=== PATIENT | female | born 1965 | race American Indian/Alaskan Native ===

== ENCOUNTER 2018-05-14 10:05 | Day surgery (SDC) | payer OTHER ==
[~2018-05-14] VITALS: Ht 175.3 cm; Wt 111.6 kg
[~2018-05-14 10:05] MED LIST: ALBUTEROL SULF8.5 GM INH; CRUTCH1 EACH
[2018-05-14] MEDS ORDERED: SENNA LAX8.6 MG PO (12:16)
[2018-05-14] MEDS ORDERED: HYDROCODON-ACE1 EA11 PO (12:16)
[2018-05-14] MEDS ORDERED: NAPROXEN500 MG PO (12:17)
--- NOTE | 2018-05-14 12:50 | NUR ---
05/14/18 1250 Tressa Ya 1217 PT ARRIVED IN PACU SLEEPY WITH NO C/O'S. 1230 OXYGEN REMOVED. SATS 90-95% ON RA. ENCOURAGED DEEP BREATHING. 1240 CRYO CUFF PLACED ON R KNEE.
--- NOTE | 2018-05-14 14:34 | NUR ---
1305 PT RETURNED FROM PACU, AWAKE AND TALKING WITH STAFF. DENIES PAIN AND NAUSEA. DRESSING C/D/I, CRYO CUFF IN PLACE. CMS INTACT. PT GIVEN WATER, COFFEE AND SOUP PER REQUEST. CALL LIGHT IN REACH. 1330 IN TO CHECK ON PT. DENIES PAIN. PT TALKING WITH DAUGHTER AND GRANDDAUGHTER. DENIES PAIN. NO FURTHER NEEDS AT THIS TIME.
--- NOTE | 2018-05-14 14:36 | NUR ---
1400 IN TO CHECK ON PT. PT DOING WELL. ASSISTED UP TO BATHROOM, TOLERATED WELL. DENIES PAIN. VITALS STABLE. PT STATES SHE IS READY FOR DISCHARGE. IV DC'D. PT DRESSED WITH ASSISTANCE FROM DAUGHTER JOVAN. DISCHARGE INSTRUCTIONS GIVEN, NO FURTHER QUESTIONS AT THIS TIME. PT WHEELED OUT TO WAITING CAR.
--- NOTE | 2018-05-15 07:51 | OR ---
[facility] [address] [place], [place] [address] Signed DATE OF OPERATION: 05/14/2018 SURGEON: Trent Howard MD PREOPERATIVE DIAGNOSIS: Medial and lateral meniscus tears, right knee. POSTOPERATIVE DIAGNOSIS: Medial and lateral meniscus tears, right knee. PROCEDURE PERFORMED: Right knee arthroscopy with partial medial and lateral meniscectomies. ANESTHESIA: General. LUMBER BUYER: BON Torres. Linda was present in critical positioning, camera holding, and closure. BLOOD LOSS: Minimal. TOURNIQUET TIME: Zero. BRIEF HISTORY: Vivian is a 53-year-old female with pain and locking in her knee. MRI is consistent with the above findings. Risks and benefits of operative treatment discussed with her and she elected to proceed. Once consent was obtained, she was taken to the operating room. After adequate anesthesia, she was placed on operating room table. Left leg was flexed and abducted and externally rotated on a well-padded leg tello. The right was placed in well-padded, proximal thigh tourniquet was placed in leg tello and port sites were pre-injected using 0.25% Marcaine with epinephrine under an alcohol prep. Leg was then prepped and draped in the standard sterile fashion. Standard inferolateral, and superolateral portals were made. The scope was introduced into the knee. ARTHROSCOPIC FINDINGS: Minimal synovitis was noted throughout the knee. The patella showed grade 3 chondromalacia, the trochlea grade 4 chondromalacia. Medial and lateral gutters were Electronically Signed By: TRENT HOWARD MD 05/15/18 0751 PATIENT NAME: VIVIAN GARCIA OPERATIVE REPORT DATE OF : 61 REPORT #: [id number] PHYSICIAN: TRENT HOWARD MD PCP: CHANA LEAL MD REPORT IS CONFIDENTIAL AND NOT TO BE RELEASED WITHOUT AUTHORIZATION [facility] [address] [place], [place] [address] Signed clear. There were some cartilaginous loose bodies. The ACL and PCL were intact. Lateral compartment showed no significant chondromalacia. There was a small radial tear in the posterior lateral corner. Medial compartment showed a small area of grade 3 chondromalacia of the femoral condyle and grade 2 changes on the tibia. Again, there were some cartilaginous loose bodies. The meniscus tear was noted to be a large complex tear extending from mid body posteriorly. DESCRIPTION OF PROCEDURE: Standard inferomedial portal was made after localization using the spinal needle. The straight and curved biters were then used to trim both menisci back to a stable rim and this was removed using the shaver and all debris was evacuated including the cartilaginous loose bodies. Once this was accomplished, the scope was withdrawn. Portals were closed with 3-0 nylon and dressed with Adaptic, ABD, and Rory wrap. She tolerated the procedure well. All sponge, needle, and instrument counts were correct. At the end of the procedure, we did inject the knee with 60 mg of Toradol. Trent Howard MD BA/MODL /[id number] Copies: ~ Electronically Signed By: TRENT HOWARD MD 05/15/18 0751 PATIENT NAME: VIVIAN GARCIA OPERATIVE REPORT DATE OF : 61 REPORT #: [id number] PHYSICIAN: TRENT HOWARD MD PCP: CHANA LEAL MD REPORT IS CONFIDENTIAL AND NOT TO BE RELEASED WITHOUT AUTHORIZATION
== END 2018-05-14 14:15 | disposition home or self-care (01) ==
LOC: DS 10:05 → OPS 10:05 → DS 10:45 → OPS 11:00 → DS 13:00 → OPS 13:00
PROVIDERS: Specialist
PROC: 0SBC4ZZ Excision of Right Knee Joint, Percutaneous Endoscopic Approach (ICD-10-PCS; 2018-05-14)
PROC: 0SCC4ZZ Extirpation of Matter from Right Knee Joint, Percutaneous Endoscopic Approach (ICD-10-PCS; 2018-05-14)
PROC: 0SBC4ZZ Excision of Right Knee Joint, Percutaneous Endoscopic Approach (ICD-10-PCS; principal; 2018-05-14 11:00)
DX: S83.231A Complex tear of medial meniscus, current injury, right knee, initial encounter (principal); S83.281A Other tear of lateral meniscus, current injury, right knee, initial encounter; M65.861 Other synovitis and tenosynovitis, right lower leg; M22.41 Chondromalacia patellae, right knee; J45.909 Unspecified asthma, uncomplicated; F17.210 Nicotine dependence, cigarettes, uncomplicated; Z88.8 Allergy status to other drugs, medicaments and biological substances; Z79.51 Long term (current) use of inhaled steroids; X58.XXXA Exposure to other specified factors, initial encounter
CPT/HCPCS: 01400; J0131; J0690; J1885; J2405; J2704; J2765; J3010

== ENCOUNTER 2020-06-24 10:56 | Emergency (ER) | payer OTHER ==
[~2020-06-24] VITALS: Ht 175.3 cm; Wt 113.4 kg
[~2020-06-24 10:56] MED LIST changes: +ASPIRIN EC325 MG PO; +CELECOXIB200 MG PO; +CLOBETASOL PROP15 GM TOP; +GABAPENTIN600 MG PO; +HEALTHYLAX17 GM PO; +HYDROCODON-ACE1 EA11 PO; +NAPROXEN500 MG PO; +NICORELIEF2 MG MT; +NICOTINE PATCH1 EAC4 TD; +OXYCODONE HCL5 MG PO; +SENNA LAX8.6 MG PO; +TYLENOL EXTRA500 MG PO
[2020-06-24] MEDS ORDERED: LIPITOR10 MG (11:25)
--- NOTE | 2020-06-24 13:06 | EKG ---
[facility] [address] [facility] [place], [place] [address] Signed Normal sinus rhythm Low voltage QRS Borderline ECG When compared with ECG of 08-MAY-2018 11:38, No significant change was found Confirmed by NICOLE VALENCIA MD ([id number]) on 06/24/2020 1:06:39 PM Electronically Signed By: NICOLE VALENCIA MD 06/24/20 1306 PATIENT NAME: GARCIAVIVIAN Electrocardiogram DATE OF : 61 PHYSICIAN: NICOLE VALENCIA MD REPORT #: [id number] REPORT IS CONFIDENTIAL AND NOT TO BE RELEASED WITHOUT AUTHORIZATION
== END 2020-06-24 13:04 | disposition home or self-care (01) ==
LOC: ED 10:56
DX: R07.9 Chest pain, unspecified (principal); F17.200 Nicotine dependence, unspecified, uncomplicated; Z88.8 Allergy status to other drugs, medicaments and biological substances; Z88.1 Allergy status to other antibiotic agents; Z79.899 Other long term (current) drug therapy; Z79.82 Long term (current) use of aspirin
CPT/HCPCS: 71046; 93005; 93010; 99285-25; 99406

== ENCOUNTER 2021-05-16 13:38 | Emergency (ER) | payer OTHER ==
[~2021-05-16] VITALS: Ht 175.3 cm; Wt 113.4 kg
[~2021-05-16 13:38] MED LIST changes: +LIPITOR10 MG
--- OUTSIDE RECORDS SUMMARY | 2021-05-16 14:38 | XMS ---
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 Neo has no Care Guidelines for this patient. Jazmin VISIT COUNT (12 MO.) 2 [facility] TOTAL 2 NOTE: Visits indicate total known visits. ED/C VISIT TRACKING (12 MO.) 05/16/2021 13:39 [facility] [place] TYPE: Emergency COMPLAINT: - SOB, L SIDE NECK/JAW PAIN, L SHOULDER PAIN 06/24/2020 10:[address] [facility] [place] TYPE: Emergency COMPLAINT: - CHEST PAIN, JAW PAIN, L SHOULDER PAIN DIAGNOSES: - Allergy status to other drugs, medicaments and biological substances - Nicotine dependence, unspecified, uncomplicated - Other termite helper (current) drug therapy - manager intermediate (current) use of aspirin - Allergy status to other antibiotic agents - Chest pain, unspecified INPATIENT VISIT TRACKING (12 MO.) No inpatient visits to display in this time frame [email or web address]
[2021-05-16] MEDS ORDERED: PREDNISONE20 MG PO (16:42)
--- NOTE | 2021-05-16 21:04 | EKG ---
[facility] [address] [facility] [place], [place] [address] Signed Normal sinus rhythm Low voltage QRS Cannot rule out Anterior infarct , age undetermined Abnormal ECG When compared with ECG of 24-JUN-2020 11:01, No significant change was found Confirmed by JONI RIZZO DO ([id number]) on 05/16/2021 9:03:50 PM Electronically Signed By: JONI RIZZO DO 05/16/21 2104 PATIENT NAME: BENNY GARCIAMARISSA VENTURAJOVAN Electrocardiogram DATE OF : 61 PHYSICIAN: JONI RIZZO DO REPORT #: [id number] REPORT IS CONFIDENTIAL AND NOT TO BE RELEASED WITHOUT AUTHORIZATION
== END 2021-05-16 17:19 | disposition home or self-care (01) ==
LOC: ED 13:38
DX: J18.9 Pneumonia, unspecified organism (principal); J98.01 Acute bronchospasm; F17.200 Nicotine dependence, unspecified, uncomplicated; Z88.8 Allergy status to other drugs, medicaments and biological substances; Z79.82 Long term (current) use of aspirin; Z79.899 Other long term (current) drug therapy
CPT/HCPCS: 36415; 71045; 80053; 83735; 84484; 85025; 85379; 93005; 93010; 94640; 96374; 99285-25; J1100

== ENCOUNTER 2021-10-06 12:30 | Emergency (ER) | payer OTHER ==
[~2021-10-06] VITALS: Ht 175.3 cm; Wt 113.4 kg
[~2021-10-06 12:30] MED LIST changes: +PREDNISONE20 MG PO
--- OUTSIDE RECORDS SUMMARY | 2021-10-06 12:34 | XMS ---
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 PHONE: [phone] Neo has no Care Guidelines for this patient. Care History Medical/Surgical 05/17/2021 [facility] - PATIENT IS [facility] [place] ELIGIBLE, \T\middot;\T\nbsp; PLEASE REFER PATIENT TO [facility] FOR NON EMERGENT MEDICAL NEEDS. \T\middot;\T\nbsp; [facility] CAN SEE PATIENTS SAME DAY FOR APTS IF PATIENT CALLS FIRST THING IN THE MORNING. E.D. VISIT COUNT (12 MO.) [address] [place] [address] TOTAL 2 NOTE: Visits indicate total known visits. ED/UCC VISIT TRACKING (12 MO.) 10/06/2021 12:32 [facility] TYPE: Emergency COMPLAINT: - CHEST PAIN, L JAW/SHOULDER PAIN 05/16/2021 13:39 [facility] [place] TYPE: Emergency COMPLAINT: - SOB, L SIDE NECK/JAW PAIN, L SHOULDER PAIN DIAGNOSES: - Acute bronchospasm - skilled nursing (current) use of aspirin - Nicotine dependence, unspecified, uncomplicated - Allergy status to other drugs, medicaments and biological substances - Shortness of breath - Pneumonia, unspecified organism - Other mcc (current) drug therapy INPATIENT VISIT TRACKING (12 MO.) No inpatient visits to display in this time frame [email or web address]
[2021-10-06] MEDS ORDERED: PREDNISONE20 MG PO (14:51)
--- NOTE | 2021-10-07 08:17 | EKG ---
[facility] [address] [facility] [place], [place] [address] Signed Normal sinus rhythm Low voltage QRS Borderline ECG When compared with ECG of 16-MAY-2021 13:46, No significant change was found Confirmed by NICOLE VALENCIA MD ([id number]) on 10/07/2021 8:17:15 AM Electronically Signed By: NICOLE VALENCIA MD 10/07/21 0817 PATIENT NAME: GARCIAVIVIAN Electrocardiogram DATE OF : 61 PHYSICIAN: NICOLE VALENCIA MD REPORT #: [id number] REPORT IS CONFIDENTIAL AND NOT TO BE RELEASED WITHOUT AUTHORIZATION
== END 2021-10-06 15:07 | disposition home or self-care (01) ==
LOC: ED 12:30
DX: R07.89 Other chest pain (principal); J45.901 Unspecified asthma with (acute) exacerbation; F17.200 Nicotine dependence, unspecified, uncomplicated; Z88.8 Allergy status to other drugs, medicaments and biological substances; Z79.82 Long term (current) use of aspirin
CPT/HCPCS: 36415; 71045; 80053; 84484; 85025; 85379; 93005; 93010; 99285-25; J7512

== ENCOUNTER 2023-09-06 14:35 | Emergency (ER) | payer OTHER ==
[~2023-09-06] VITALS: Ht 175.3 cm; Wt 123.0 kg
[2023-09-06] MEDS ORDERED: SULFAMETHOXAZO1 EAC1 PO (14:55)
[2023-09-06] MEDS ORDERED: SENNA8.6 MG PO (14:56)
[2023-09-06] MEDS ORDERED: DOCUSATE SODIU100 MG PO (14:56)
[2023-09-06] MEDS ORDERED: GOLYTELY SOLU4000 ML PO (15:36)
[2023-09-06 16:01] VITALS: BP 88/75
== END 2023-09-06 16:03 | disposition home or self-care (01) ==
LOC: ED 14:35
DX: K59.00 Constipation, unspecified (principal); S56.49 Other injury of extensor muscle, fascia and tendon of other and unspecified finger at forearm level; F17.200 Nicotine dependence, unspecified, uncomplicated; X58.XXXA Exposure to other specified factors, initial encounter; Z88.8 Allergy status to other drugs, medicaments and biological substances; Z79.82 Long term (current) use of aspirin; Z79.899 Other long term (current) drug therapy
CPT/HCPCS: 73140; 74022; 99283-25

== ENCOUNTER 2024-10-31 15:16 | Emergency (ER) | payer OTHER ==
[~2024-10-31] VITALS: Ht 175.3 cm; Wt 110.2 kg
[~2024-10-31 15:16] MED LIST changes: +DOCUSATE SODIU100 MG PO; +GOLYTELY SOLU4000 ML PO; +SENNA8.6 MG PO; +SULFAMETHOXAZO1 EAC1 PO
[2024-10-31] MEDS ORDERED: IPRAT-ALBUT 0.5-3 ML INH (15:38)
[2024-10-31] MEDS ORDERED: VARENICLINE TART1 MG PO (15:39)
[2024-10-31 17:00] VITALS: BP 100/60
== END 2024-10-31 17:00 | disposition home or self-care (01) ==
LOC: ED 15:16
DX: S46.911A Strain of unspecified muscle, fascia and tendon at shoulder and upper arm level, right arm, initial encounter (principal); J44.9 Chronic obstructive pulmonary disease, unspecified; F17.200 Nicotine dependence, unspecified, uncomplicated; Z79.82 Long term (current) use of aspirin; Z88.8 Allergy status to other drugs, medicaments and biological substances; W01.0XXA Fall on same level from slipping, tripping and stumbling without subsequent striking against object, initial encounter
CPT/HCPCS: 71045; 73030; 99283-25

== ENCOUNTER 2025-03-26 07:30 | Day surgery (SDC) | payer OTHER ==
[~2025-03-26] VITALS: Ht 175.3 cm; Wt 107.0 kg
[~2025-03-26 07:30] MED LIST changes: +CEFAZOLIN SODIUM 2 GM in SODIUM CHLORIDE 0.9% 100 ML IV SCH; +IBLOOD GLUCOSE TEST STRIP 1 EA TEST VI PRN; +IPRAT-ALBUT 0.5-3 ML INH; +LACTATED RINGER'S 1,000 ML IV SCH; +LIDOCAINE HCL 1% 5 ML SDV INJ ONE; +LOVASTATIN10 MG PO; +MIDAZOLAM HCL 5 MG/5 ML VIAL IV PRN; +VARENICLINE TART1 MG PO; +fentaNYL citrate 100 MCG/2 ML VIAL IV PRN
[2025-03-26 07:51] VITALS: BP 96/75
[2025-03-26] MEDS ORDERED: MIDAZOLAM HCL 5 MG/5 ML VIAL ONE (08:14)
[2025-03-26] MEDS ORDERED: fentaNYL citrate 100 MCG/2 ML VIAL ONE (08:15)
--- NOTE | 2025-03-26 09:32 | NUR ---
03/26/25 0932 Eliana Calloway 0922- PT PRESENTS TO PACU, LEFT LATERAL POSITION, DROWSY AND AWAKE OFF AND ON. DENIES PAIN OR NAUSEA. ABD SOFT, NON DISTENDED. ENCOURAGED TO PASS GAS. BREATHING EVEN AND NON LABORED ON 3L O2 PER NC. LR INFUSING TO RFA IV. ALL MONITORS IN PLACE. 0928- PT RESTING, MOVED TO ROOM AIR AT THIS TIME.
[2025-03-26 09:51] VITALS: BP 140/91
--- NOTE | 2025-03-27 14:31 | OR ---
[facility] [address] [place], [place] [address] Signed DATE OF OPERATION: 03/26/2025 SURGEON: Daily Alfonso MD PREOPERATIVE DIAGNOSIS: Colon surveillance. POSTOPERATIVE DIAGNOSES: 1. Sigmoid and left-sided diverticulosis. 2. Small polyps x2, distal sigmoid. 3. Small polyp, mid rectum. PROCEDURE: Total colonoscopy to cecum with cold morcellation polypectomy x3. ANESTHESIA: Intravenous sedation; fentanyl 150 mcg, Versed 8 mg. INDICATION: This 59-year-old woman is a patient of Tracy Talbot of [facility] and underwent colonoscopy by Dr. Nando Grey 10 years ago. There were no findings of note at that time. She has no current symptoms of bleeding, diarrhea or constipation. She is admitted at this time to undergo colonoscopy. She understands the risk of bleeding, infection, and perforation. FINDINGS: The prep was good. Complete colonoscopy was undertaken of the cecum. There were diverticular changes of sigmoid and left colon. There were two small polyps of the distal sigmoid and one of the mid rectum, all excised with cold morcellation technique. DESCRIPTION OF PROCEDURE: The patient was brought to the endoscopy suite and placed in the lateral decubitus position, given intravenous sedation to the point of slurred speech and nystagmus. Digital rectal examination was normal. An Olympus video colonoscope was passed in the rectum and manipulated throughout the colon ultimately intubating the cecum itself. The ileocecal valve and appendiceal orifice were normal. The scope was withdrawn from that point and examination throughout showed no sign of abnormality until the distal sigmoid. Diverticula had been seen in the left colon and sigmoid, but there were two small polyps, probably hyperplastic, both Electronically Signed By: DAILY ALFONSO MD 03/27/25 1431 PATIENT NAME: VIVIAN GARCIA OPERATIVE REPORT DATE OF : 61 REPORT #: [id number] PHYSICIAN: DAILY ALFONSO MD PCP: TRACY TALBOT PAC REPORT IS CONFIDENTIAL AND NOT TO BE RELEASED WITHOUT AUTHORIZATION [facility] [address] [place], [place] [address] Signed were excised with cold morcellation technique. Further withdrawal allowed for retroflexed view in the rectum, which demonstrated a small adenomatous appearing polyp in the mid rectum. This was excised with cold morcellation technique. The scope was straightened, withdrawn and removed. The patient was taken to the recovery room in good condition. CONCLUDING DIAGNOSIS: Polyps x3, hyperplastic and adenomatous. PLAN: Recommend repeat colonoscopy in 7 to 10 years, sooner if symptoms should develop. MD JULIETTE Madison/LIZ /[id number] cc: Tracy Talbot Copies: TRACY TALBOT PAC ~ Electronically Signed By: DAILY ALFONSO MD 03/27/25 1431 PATIENT NAME: VIVIAN GARCIA OPERATIVE REPORT DATE OF : 61 REPORT #: [id number] PHYSICIAN: DAILY ALFONSO MD PCP: TRACY TALBOT PAC REPORT IS CONFIDENTIAL AND NOT TO BE RELEASED WITHOUT AUTHORIZATION
== END 2025-03-26 10:05 | disposition home or self-care (01) ==
LOC: DS 07:30 → OPS 07:30 → DS 08:15 → OPS 08:15
PROVIDERS: ATTEND Surgery
PROC: 0DBN8ZX Excision of Sigmoid Colon, Via Natural or Artificial Opening Endoscopic, Diagnostic (ICD-10-PCS; principal; 2025-03-26 08:15)
PROC: 0DBP8ZX Excision of Rectum, Via Natural or Artificial Opening Endoscopic, Diagnostic (ICD-10-PCS; principal; 2025-03-26 08:15)
DX: Z12.11 Encounter for screening for malignant neoplasm of colon (principal); D12.8 Benign neoplasm of rectum; K63.5 Polyp of colon; K57.30 Diverticulosis of large intestine without perforation or abscess without bleeding; E78.5 Hyperlipidemia, unspecified; I50.22 Chronic systolic (congestive) heart failure; F17.210 Nicotine dependence, cigarettes, uncomplicated; Z88.8 Allergy status to other drugs, medicaments and biological substances
CPT/HCPCS: 88305; 99153; G0500; J0688; J2250; J3010; J7121